=== PATIENT | female | born 1975 | race Caucasian/White ===

== ENCOUNTER 2023-02-11 21:49 | Emergency (ER) | payer OTHER ==
[2023-02-12] MEDS: Lidocaine 1% 5 ML VIAL INJECT ONE (01:21)
[2023-02-12] MEDS: Diphtheria,Pertussis(Acell),Tetanus Vaccine 0.5 ML Syringe IM ONE (01:21)
== END 2023-02-12 01:36 | disposition home or self-care (01) ==
LOC: JP.ED 21:49
DX: S01.341A Puncture wound with foreign body of right ear, initial encounter (principal); Z23 Encounter for immunization
CPT/HCPCS: 69200; 90471; 90715; 99282-25